=== PATIENT | male | born 1980 | race Caucasian/White ===

== ENCOUNTER 2017-08-04 15:47 | Inpatient (IN) | payer OTHER ==
[~2017-08-04] VITALS: Ht 177.8 cm; Wt 76.7 kg
[2017-08-04] MEDS ORDERED: SODIUM CHLORIDE 0.9% 1,000 ML IVB ONE (16:07)
[2017-08-04] MEDS ORDERED: KETOROLAC TROMETH 30 MG/ML 1ML VIAL IV ONE (16:15)
[2017-08-04] MEDS ORDERED: ONDANSETRON HCL 4 MG/2 ML VIAL IV ONE (16:15)
[2017-08-04 16:47] LABS: Albumin 3.9 g/dL (3.4-5.0); BUN/Creatinine Ratio 16.8; Bilirubin, Total 0.6 mg/dL (0.2-1.0); Calcium 8.8 mg/dL (8.5-10.1); Magnesium 2.3 mg/dL (1.6-2.6); Potassium 4.2 mmol/L (3.5-5.1); Total Protein 7.8 g/dL (6.4-8.2)
[2017-08-04] MEDS ORDERED: cefTRIAXone 1GM/50ML D5W 50 ML IV ONE ×2 (17:00→18:00)
[2017-08-04 17:06] LABS: Basophils # (auto) 0 uL; Basophils % (auto) 0.3 % (0.0-2.0); Eosinophils # (auto) 0.2 uL; Eosinophils % (auto) 1.8 % (0.0-7.0); Hematocrit 42.7 % (41.0-53.0); Hemoglobin 14.2 g/dL (13.5-17.5); Lymphocytes # (auto) 1.7 uL; Lymphocytes % (auto) 12.5 % (10.0-50.0); Mean Corpuscular Hemoglobin 31.1 pg (28.0-32.0); Mean Corpuscular Hgb Conc. 33.1 g/dL (32.0-36.0); Monocytes # (auto) 0.5 uL; Monocytes % (auto) 3.7 % (0.0-12.0); Neutrophils % (auto) 81.7 % (37.0-80.0); Nucleated Red Blood Cells % 0.1 %; Platelet Count (auto) 295 10^3/uL (140-450); White Blood Cell 13.4 10^3/uL (4.4-10.8)
[2017-08-04] MEDS ORDERED: MORPHINE SULF INJ 2 MG/ML SYRINGE 1ML IV ONE (17:45)
[2017-08-04] MEDS ORDERED: PROMETHAZINE HCL 25 MG/ML 1ML IV PRN (18:00)
[2017-08-04] MEDS ORDERED: ACETAMINOPHEN 500 MG TAB PO PRN (18:00)
[2017-08-04] MEDS ORDERED: TEMAZEPAM 15 MG CAP PO PRN (18:00)
[2017-08-04] MEDS ORDERED: LORazepam 0.5 MG TAB PO PRN (18:00)
[2017-08-04] MEDS ORDERED: MORPHINE SULF INJ 2 MG/ML SYRINGE 1ML IV PRN (18:00)
[2017-08-04 18:50] LABS: Urine Bilirubin Negative (Negative); Urine Blood 3+ /uL (Negative); Urine Color PINK (Yellow); Urine Glucose Normal (Normal); Urine Ketone 2+ (Negative); Urine Mucus FEW (None Seen); Urine Nitrite Negative (Negative); Urine RBC 1517 /hpf (0 - 3); Urine Squamous Epithelial Cell FEW /hpf (<5); Urine pH 5.5 (5.0-8.0)
[2017-08-04] MEDS: SODIUM CHLORIDE 0.9% 1,000 ML IV SCH (20:10)
[2017-08-04 22:20] VITALS: BP 113/67
[2017-08-04] MEDS: FAMOTIDINE 20 MG TAB PO SCH (23:09)
[2017-08-04 23:11] VITALS: BP 113/67
[2017-08-04] MEDS: HYDROcodone-ACET 5/325MG TAB PO PRN (23:43)
[2017-08-05] MEDS: SODIUM CHLORIDE 0.9% 1,000 ML IV SCH ×2 (03:57→08:40)
[2017-08-05 05:00] VITALS: BP 112/65
[2017-08-05 06:41] LABS: Basophils # (auto) 0.1 uL; Basophils % (auto) 0.6 % (0.0-2.0); Eosinophils # (auto) 0.4 uL; Eosinophils % (auto) 5.2 % (0.0-7.0); Hematocrit 37.3 % (41.0-53.0); Hemoglobin 12.5 g/dL (13.5-17.5); Lymphocytes # (auto) 2.7 uL; Lymphocytes % (auto) 31.2 % (10.0-50.0); Mean Corpuscular Hemoglobin 31.7 pg (28.0-32.0); Mean Corpuscular Hgb Conc. 33.6 g/dL (32.0-36.0); Mean Corpuscular Volume 94.2 fL (80.0-100.0); Mean Platelet Volume 8.8 fL (6.9-10.8); Monocytes # (auto) 0.8 uL; Monocytes % (auto) 9.8 % (0.0-12.0); Neutrophils # (auto) 4.6 uL; Neutrophils % (auto) 53.2 % (37.0-80.0); Nucleated Red Blood Cells % 0.1 %; Platelet Count (auto) 229 10^3/uL (140-450); Red Cell Distribution Width 14.4 % (11.8-14.3); White Blood Cell 8.6 10^3/uL (4.4-10.8)
[2017-08-05] MEDS: cefTRIAXone 1GM/50ML D5W 50 ML IV SCH (08:40)
[2017-08-05] MEDS: HYDROcodone-ACET 5/325MG TAB PO PRN (08:40)
[2017-08-05] MEDS: FAMOTIDINE 20 MG TAB PO SCH ×2 (08:52→21:48)
[2017-08-05 09:00] VITALS: BP 119/70
[2017-08-05 13:00] VITALS: BP 113/68
[2017-08-05] MEDS: KETOROLAC TROMETH 30 MG/ML 1ML VIAL IV PRN ×2 (14:44→21:49)
[2017-08-05 17:00] VITALS: BP 123/62
[2017-08-05] MEDS: TAMSULOSIN HYDROCHLORIDE 0.4 MG CAP PO SCH (17:55)
[2017-08-05 22:00] VITALS: BP 117/67
[2017-08-06] MEDS: SODIUM CHLORIDE 0.9% 1,000 ML IV SCH ×3 (00:25→21:12)
[2017-08-06 05:00] VITALS: BP 113/63
[2017-08-06] MEDS: KETOROLAC TROMETH 30 MG/ML 1ML VIAL IV PRN ×3 (05:21→17:49)
[2017-08-06 09:00] VITALS: BP 127/71
[2017-08-06] MEDS: FAMOTIDINE 20 MG TAB PO SCH ×2 (09:10→21:49)
[2017-08-06] MEDS: cefTRIAXone 1GM/50ML D5W 50 ML IV SCH (09:10)
[2017-08-06 13:00] VITALS: BP 131/84
[2017-08-06] MEDS: HYDROcodone-ACET 5/325MG TAB PO PRN ×2 (14:16→21:11)
[2017-08-06 17:00] VITALS: BP 126/71
[2017-08-06] MEDS: TAMSULOSIN HYDROCHLORIDE 0.4 MG CAP PO SCH (17:49)
[2017-08-06 22:00] VITALS: BP 124/65
[2017-08-07 05:00] VITALS: BP 120/74
[2017-08-07] MEDS: SODIUM CHLORIDE 0.9% 1,000 ML IV SCH (06:55)
[2017-08-07] MEDS: HYDROcodone-ACET 5/325MG TAB PO PRN (06:56)
[2017-08-07 09:00] VITALS: BP 121/68
[2017-08-07] MEDS: FAMOTIDINE 20 MG TAB PO SCH (09:19)
[2017-08-07] MEDS: cefTRIAXone 1GM/50ML D5W 50 ML IV SCH (09:19)
[2017-08-07 11:38] VITALS: BP 121/68
== END 2017-08-07 12:18 | disposition home or self-care (01) | DRG 694 ==
LOC: ER 15:49 → OVERFLOW 15:50 → EAST 22:20
PROVIDERS: ADMIT Internal Medicine; ATTEND Internal Medicine
DX: N13.2 Hydronephrosis with renal and ureteral calculous obstruction (principal); F17.210 Nicotine dependence, cigarettes, uncomplicated; R73.9 Hyperglycemia, unspecified; Z87.448 Personal history of other diseases of urinary system; Z82.49 Family history of ischemic heart disease and other diseases of the circulatory system; Z79.899 Other long term (current) drug therapy
CPT/HCPCS: 36415; 74176; 80053; 81001; 83735; 85025; 87086; 96361; 96365; 96375; J0696; J1885; J2405